=== PATIENT | female | born 2000 | race Caucasian/White ===

== ENCOUNTER 2021-06-11 09:08 | Outpatient (CLI) | payer OTHER, SELFPAY ==
--- NOTE | ~2021-06-11 | US_ITS ---
US breast RT complete INDICATION: Palpable right breast lump. TECHNIQUE: Dedicated right complete breast ultrasound including all 4 quadrants in the subareolar loc ation. COMPARISON: No prior studies for comparison. FINDINGS: The right breast is composed of normal heterogeneous echotexture without focal solid or cys tic mass. IMPRESSION: 1: Normal right breast ultrasound. BI-RADS CATEGORY 1 - NEGATIVE Reviewed, dictated and finalized at location A. T [employer] SUPER[employer]
== END 2021-06-11 09:09 ==
LOC: MICIMG 09:10
PROVIDERS: Visit Provider Physician Assistant Medical
DX: N63.11 Unspecified lump in the right breast, upper outer quadrant (principal)
CPT/HCPCS: 76641

== ENCOUNTER 2024-08-18 15:20 | Outpatient (CLI) | payer OTHER, SELFPAY ==
--- NOTE | ~2024-08-18 | US_ITS ---
US pelvic complete Ordering provider: Wendy Preciado PA-C History: . R10.2 - Pelvic and perineal pain . Comparison: None. Technique: Transabdominal ultrasound of the pelvis (Doppler ultrasound interrogation techniques used as needed for this exam.) FINDINGS: CERVIX: Normal. UTERUS: Measures 7x 3.2x 4.3 cm in length which is within normal limits and is anteverted. No myomet rial masses. ENDOMETRIUM: Normal in thickness measuring 2.3 mm. No endometrial masses, cysts or fluid. CUL DE SAC: No free fluid. RIGHT OVARY: Normal in size measuring 3x 2x 1.8 cm. Normal echotexture. Doppler vascular flow present . LEFT OVARY: Normal in size measuring 3.7x 1.9x 1.8 cm. Normal echotexture. Doppler vascular flow pres ent. ADNEXA: Normal. No mass. IMPRESSION: normal pelvic ultrasound. Reviewed, dictated and finalized at location A. IMPRESSION: normal pelvic ultrasound.
--- OUTSIDE RECORDS SUMMARY | 2024-08-18 15:24 | XMS_ITS | Clinical Summary ---
Author Organization [facility] Address [facility] [place] [address] Care Team Providers Care Mirror Department Supervisor Name Role Phone Wendy Preciado PA-C Primary Care Provider [phone]- [phone] Allergies No known active allergies Social History Tobacco Use Types Packs/Day Years Used Date Smoking Tobacco: Never Assessed Comments Unknown Sex and Gender Information Value Date Recorded Sex Assigned at Not on file Legal Sex Female 8:27 PM CDT Gender Identity Not on file Sexual Orientation Not on file Last Filed Vital Signs Vital Sign Reading Time Taken Comments Blood Pressure 126/64 06/14/2021 6:10 PM BUFFET WAITER/WAITRESS Pulse 88 06/14/2021 6:10 PM BUFFET WAITER/WAITRESS Temperature 36.7 C (98 F) 06/14/2021 6:10 PM BUFFET WAITER/WAITRESS Respiratory Rate 20 06/14/2021 6:10 PM BUFFET WAITER/WAITRESS Oxygen Saturation 98% 06/14/2021 6:10 PM BUFFET WAITER/WAITRESS Inhaled Oxygen Concentration - - Weight 63.5 kg (140 lb) 06/14/2021 6:10 PM BUFFET WAITER/WAITRESS Height 160 cm (5' 3 ) 06/14/2021 6:10 PM BUFFET WAITER/WAITRESS Body Mass Index 24.8 06/14/2021 6:10 PM BUFFET WAITER/WAITRESS Plan of Treatment Upcoming Encounters Date Type Department Care Team (Late st Contact Info) Description 08/21/2024 7:30 AM CDT Appointment [facility] [address] [place] [address] Wendy Preciado PA-C [address] [place] [address] [address] [place] [address] Health Maintenance Due Date Last Done Comments Cervical Cancer Screening Pa p Smear (Age 21 to 29) Every 3 Years 2001 Cervical Cancer Screening 2001 Annual Physical 02/05/2004 Meningococcal B Vaccine (1 o f 2 - Standard) 2017 Hepatitis C 2019 Hepatitis B Vaccines (1 of 3 - 19+ 3-dose series) 02/05/2020 DTaP, Tdap and Td Vaccines ( 2 - Td or Tdap) 09/20/2022 09/20/2012 COVID-19 Vaccine (2 - 2023-2 5 season) 2024 10/08/2020 Meningococcal Vaccine Aged Out 09/20/2012 No kortney lynnette eligible based on patient's age to complete this topic HPV Vaccines Completed 03/27/2013, 11/25/2012, 09/20/2012 Pneumococcal Vaccine: Pediatrics (0 to 5 Years) and At-Risk Patients (6 to 64 Years) Aged Out No longer eligible b ased on patient's age to complete this topic RSV Immunizations Under 20 Months Aged Out No longer eligible b ased on patient's age to complete this topic Insurance Care Teams Mirror Department Supervisor Relationship Specialty Start Date End Date Wendy Preciado PA-C PCP - General PHYSICIAN [employer]ANDSCAPE NURSERYMAN 06/14/21
[2024-08-18 16:18] LABS: Add Urine Microscopic? YES; Appearance Urine Clear (Clear); Bacteria Urine None Seen /hpf; Bilirubin Urine Negative (Negative); Blood Urine 2+ (Negative); Color Urine Yellow (Yellow); Glucose Urine UA Negative (Negative); Ketones Urine Negative (Negative); Leukocyte Esterase Ur Trace LEU/UL (Negative); Nitrate Urine Negative (Negative); Non Pathogenic Casts 0-2; Pregnancy On Board Control Positive; Protein Urine Negative (Negative); Specific Grav Ur 1.007 (1.001-1.035); Squamous Epithelial Cell Urine Occasional /hpf (Few); Urine Pregnancy Test Negative; Urobilinogen Urine 0.2 mg/dL (<2.0); WBC Urine 0-5 /hpf (0-3); pH Urine 7.5 (5.0-9.0)
== END 2024-08-18 15:21 | disposition home or self-care (01) ==
PROVIDERS: PCP Physician Assistant Medical; Visit Provider Physician Assistant Medical
DX: R10.2 Pelvic and perineal pain (principal)
CPT/HCPCS: 76856; 81001; 81025